=== PATIENT | female | born 1965 | race Caucasian/White ===

== ENCOUNTER 2018-09-08 13:32 | Emergency (ER) | payer OTHER ==
[~2018-09-08] VITALS: Ht 154.9 cm; Wt 91.6 kg
[2018-09-08 13:42] VITALS: Ht 154.9 cm; Wt 91.6 kg
[2018-09-08 17:01] VITALS: BP 109/70
== END 2018-09-08 17:01 | disposition home or self-care (01) ==
LOC: ED 13:32
DX: J02.9 Acute pharyngitis, unspecified (principal); R42 Dizziness and giddiness; E66.01 Morbid (severe) obesity due to excess calories; Z68.38 Body mass index [BMI] 38.0-38.9, adult; Z98.51 Tubal ligation status; Z88.8 Allergy status to other drugs, medicaments and biological substances; Z98.890 Other specified postprocedural states

== ENCOUNTER 2018-10-07 20:41 | Emergency (ER) | payer OTHER ==
[~2018-10-07] VITALS: Ht 157.5 cm; Wt 91.6 kg
[2018-10-07 21:15] VITALS: Ht 157.5 cm; Wt 91.6 kg
[2018-10-08 01:00] VITALS: BP 134/78
== END 2018-10-08 01:00 | disposition home or self-care (01) ==
LOC: ED 20:41
DX: L25.0 Unspecified contact dermatitis due to cosmetics (principal); N39.0 Urinary tract infection, site not specified; Z98.51 Tubal ligation status; Z88.8 Allergy status to other drugs, medicaments and biological substances
CPT/HCPCS: 82962